=== PATIENT | male | born 1990 | race Caucasian/White ===

== ENCOUNTER 2017-08-28 09:34 | Emergency (ER) | payer OTHER ==
[~2017-08-28] VITALS: Ht 180.3 cm; Wt 99.8 kg
[~2017-08-28 09:34] MED LIST: AMOXICILLIN500 MG PO; ATIVAN1 MG PO; PREDNICOT20 MG PO; TESSALON PERLE200 MG PO; ZITHROMAX Z PA250 MG PO
[2017-08-28] MEDS ORDERED: DOXYCYCLINE100 M3 PO (10:01)
== END 2017-08-28 10:06 | disposition home or self-care (01) ==
LOC: ED 09:34
DX: J40 Bronchitis, not specified as acute or chronic (principal); L03.211 Cellulitis of face; F17.200 Nicotine dependence, unspecified, uncomplicated; Z88.0 Allergy status to penicillin

== ENCOUNTER 2017-09-30 15:16 | Emergency (ER) | payer OTHER ==
[~2017-09-30] VITALS: Ht 175.2 cm; Wt 99.8 kg
[~2017-09-30 15:16] MED LIST changes: +DOXYCYCLINE100 M3 PO
[2017-09-30] MEDS ORDERED: ZOFRAN ODT4 MG SL (16:36)
[2017-09-30] MEDS ORDERED: ZITHROMAX250 MG PO (16:36)
== END 2017-09-30 16:42 | disposition home or self-care (01) ==
LOC: ED 15:16
DX: H66.92 Otitis media, unspecified, left ear (principal); F17.200 Nicotine dependence, unspecified, uncomplicated; Z88.0 Allergy status to penicillin

== ENCOUNTER 2017-10-31 15:57 | Emergency (ER) | payer OTHER ==
[~2017-10-31] VITALS: Ht 182.8 cm; Wt 99.8 kg
[~2017-10-31 15:57] MED LIST changes: +ZITHROMAX250 MG PO; +ZOFRAN ODT4 MG SL
[2017-10-31] MEDS ORDERED: NAPROSYN500 MG PO (16:06)
== END 2017-10-31 17:30 | disposition home or self-care (01) ==
LOC: ED 15:57
DX: M25.561 Pain in right knee (principal); R03.0 Elevated blood-pressure reading, without diagnosis of hypertension; Z79.899 Other long term (current) drug therapy; Z88.0 Allergy status to penicillin; X50.1XXA Overexertion from prolonged static or awkward postures, initial encounter; Y93.89 Activity, other specified; Y92.69 Other specified industrial and construction area as the place of occurrence of the external cause; Y99.9 Unspecified external cause status

== ENCOUNTER 2018-02-04 17:32 | Emergency (ER) | payer OTHER ==
[~2018-02-04] VITALS: Ht 185.4 cm; Wt 99.8 kg
[~2018-02-04 17:32] MED LIST changes: +NAPROSYN500 MG PO
[2018-02-04 18:26] LABS: BASO # 0.1 10*3/uL (0.0-0.1); BASO % 0.7 % (0.0-1.0); EOS # 0.2 10*3/uL (0.0-0.4); EOS % 2.6 % (1.0-4.0); HEMATOCRIT 46.5 % (42.0-52.0); HEMOGLOBIN 15.8 g/dl (14.0-18.0); LYMPH # 2.2 10*3/uL (1.3-4.4); LYMPH % 31.2 % (27.0-41.0); MEAN CELL VOLUME 91.4 fl (80.0-94.0); MEAN PLATELET VOLUME 10.7 fl (9.6-12.3); MONO # 0.5 10*3/uL (0.1-1.0); MONO % 6.5 % (3.0-9.0); NEUT # 4.1 10*3/uL (2.3-7.9); NEUT % 58.9 % (47.0-73.0); PLATELET COUNT AUTOMATED 219 10*3/uL (130-400); RED BLOOD COUNT 5.09 10*6/uL (4.50-5.90); RED CELL DISTRI WIDTH 12.6 % (0-14.5); WHITE BLOOD COUNT 6.9 10*3/uL (4.8-10.8)
[2018-02-04 18:44] LABS: ALBUMIN 3.9 gm/dl (3.1-4.5); ALKALINE PHOSPHATASE 112 U/L (45-117); BUN 9 mg/dl (7-24); CHLORIDE 109 mmol/L (98-107); CREATININE 1.04 mg/dL (0.70-1.30); POTASSIUM 3.7 mmol/L (3.5-5.1); SGOT/AST 29 IU/L (3-35); SGPT/ALT 61 U/L (12-78); SODIUM 144 mmol/L (136-145); TOTAL PROTEIN 7.5 gm/dL (6.4-8.2)
[2018-02-04 18:49] LABS: TROPONIN I < 0.015 ng/ml (<0.045)
== END 2018-02-04 19:30 | disposition home or self-care (01) ==
LOC: ED 17:32
PROVIDERS: Physician Assistant
DX: R00.2 Palpitations (principal); F41.9 Anxiety disorder, unspecified; F17.200 Nicotine dependence, unspecified, uncomplicated; Z88.0 Allergy status to penicillin

== ENCOUNTER 2018-03-12 12:01 | Emergency (ER) | payer OTHER ==
[~2018-03-12] VITALS: Ht 182.8 cm; Wt 97.5 kg
[2018-03-12] MEDS ORDERED: CLINDAMYCIN HC300 MG PO (12:37)
[2018-03-12] MEDS ORDERED: NAPROSYN500 MG PO (12:37)
[2018-04-21] MEDS ORDERED: Motrin,Rufen800 MG PO (12:45)
[2018-04-21] MEDS ORDERED: CLINDAMYCIN150 MG PO (12:45)
== END 2018-03-12 13:00 | disposition home or self-care (01) ==
LOC: ED 12:01
DX: K08.89 Other specified disorders of teeth and supporting structures (principal); Z88.0 Allergy status to penicillin

== ENCOUNTER 2018-07-05 10:54 | Emergency (ER) | payer OTHER ==
[~2018-07-05] VITALS: Ht 182.8 cm; Wt 102.1 kg
[~2018-07-05 10:54] MED LIST changes: +CLINDAMYCIN HC300 MG PO; +CLINDAMYCIN150 MG PO; +Motrin,Rufen800 MG PO
[2018-07-05] MEDS ORDERED: CLINDAMYCIN HC300 MG PO (11:32)
[2018-07-05] MEDS ORDERED: FLONASE ALLERG9.9 ML NAS (11:32)
[2018-07-05] MEDS ORDERED: Motrin,Rufen800 MG PO (11:32)
== END 2018-07-05 12:20 | disposition home or self-care (01) ==
LOC: ED 10:54
DX: K08.89 Other specified disorders of teeth and supporting structures (principal); J01.90 Acute sinusitis, unspecified; Z88.0 Allergy status to penicillin; Z88.5 Allergy status to narcotic agent

== ENCOUNTER 2018-09-07 10:30 | Emergency (ER) | payer OTHER ==
[~2018-09-07] VITALS: Ht 182.8 cm; Wt 102.1 kg
[~2018-09-07 10:30] MED LIST changes: +FLONASE ALLERG9.9 ML NAS
[2018-09-07] MEDS ORDERED: Peridex 473 ML473 ML PO (10:47)
[2018-09-07] MEDS ORDERED: NAPROSYN500 MG PO (10:47)
[2018-09-07] MEDS ORDERED: ZOFRAN4 MG PO (10:47)
[2018-09-07] MEDS ORDERED: CLINDAMYCIN150 MG PO (10:47)
== END 2018-09-07 11:10 | disposition home or self-care (01) ==
LOC: ED 10:30
DX: K02.9 Dental caries, unspecified (principal); R03.0 Elevated blood-pressure reading, without diagnosis of hypertension; F17.200 Nicotine dependence, unspecified, uncomplicated; Z88.0 Allergy status to penicillin; Z88.6 Allergy status to analgesic agent

== ENCOUNTER 2018-11-30 15:34 | Emergency (ER) | payer OTHER ==
[~2018-11-30] VITALS: Ht 182.8 cm; Wt 99.8 kg
[~2018-11-30 15:34] MED LIST changes: +Peridex 473 ML473 ML PO; +ZOFRAN4 MG PO
[2019-01-05] MEDS ORDERED: BUSPIRONE HCL7.5 MG PO (08:47)
== END 2018-11-30 17:33 | disposition home or self-care (01) ==
LOC: ED 15:34
DX: M25.561 Pain in right knee (principal); Z88.5 Allergy status to narcotic agent; Z88.0 Allergy status to penicillin; X50.1XXA Overexertion from prolonged static or awkward postures, initial encounter; Y93.89 Activity, other specified; Y92.59 Other trade areas as the place of occurrence of the external cause; Y99.8 Other external cause status